=== PATIENT | female | born 1990 | race Caucasian/White ===

== ENCOUNTER 2018-03-25 09:44 | Emergency (ER) | payer OTHER ==
[~2018-03-25] VITALS: Ht 167.6 cm; Wt 76.2 kg
[2018-03-25 09:46] VITALS: Ht 167.6 cm; Wt 76.2 kg
[2018-03-25 11:16] VITALS: BP 135/84
== END 2018-03-25 11:14 | disposition home or self-care (01) ==
LOC: ED 09:44
DX: J06.9 Acute upper respiratory infection, unspecified (principal); J02.9 Acute pharyngitis, unspecified; H60.92 Unspecified otitis externa, left ear
CPT/HCPCS: J7512